=== PATIENT | female | born 2000 | race Caucasian/White ===

== ENCOUNTER 2023-09-30 18:11 | Emergency (ER) | payer OTHER ==
[~2023-09-30] VITALS: Ht 157.5 cm; Wt 63.5 kg
[2023-09-30] MEDS ORDERED: IBUP-1955 PO (20:43)
[2023-09-30] MEDS ORDERED: ACET-2605 PO (20:43)
[2023-09-30] MEDS ORDERED: CYCL5TAB PO (20:43)
[2023-09-30 20:49] VITALS: BP 136/86; TEMP 98.3; O2SAT 98
== END 2023-09-30 20:50 | disposition home or self-care (01) ==
LOC: ER 18:11
DX: R51.9 Headache, unspecified (principal); R07.89 Other chest pain; V49.3XXA Car occupant (driver) (passenger) injured in unspecified nontraffic accident, initial encounter; Y93.89 Activity, other specified; Y92.89 Other specified places as the place of occurrence of the external cause; Y99.8 Other external cause status
CPT/HCPCS: 70450-TC; 71100-TC